=== PATIENT | male | born 1960 | race Caucasian/White ===

== ENCOUNTER 2021-11-24 11:23 | Emergency (ER) | payer OTHER, SELFPAY ==
[2021-11-24 11:24] VITALS: BP 169/85; PULSE 70; RESP 14; TEMP 36.4; O2SAT 98; BMI 39.1
--- NOTE | 2021-11-24 11:34 | NURSING ---
CALLED [facility], TO HAVE PATIENT TESTED
--- NOTE | 2021-11-24 12:05 | CT_ITS ---
STUDY: CT CHEST WITHOUT CONTRAST REASON FOR EXAM: Male, 61 years old. Chest injury due to trauma. RADIATION DOSAGE (If Supplied By Facility): CTDIvol = ( 20.04 ) mGy, DLP = ( 640.94 ) mGycm TECHNIQUE: Transaxial imaging was performed without the administration of intravenous contrast material. Multiplanar coronal and sagittal images were reformatted. Individualized dose optimization techniques were used for this CT. COMPARISON: No relevant priors. FINDINGS: CHEST There is a 6.3 mm pleural-based nodule in the lateral posterior aspect of the left lower lobe. A 12 month follow-up is recommended. There is no demonstrated pleural abnormality. There are calcifications of the coronary arteries. Mild degree of pericardial thickening along the right side of the heart. Normal mediastinum. Normal hilar regions. Normal unenhanced pulmonary arteries. Normal aorta arch and descending thoracic aorta. There are degenerative changes of the thoracic spine. Fatty infiltration of the liver. CT/Chest without Contrast IMPRESSION: 6.3 mm pleural-based nodule in the lateral posterior aspect of the left lower lobe. A 12 month follow-up examination is recommended. Mild degree of the right-sided pericardial thickening. Electronically Signed: Suhail Abbasi MD at 13:02 EDT ,
--- NOTE | 2021-11-24 12:06 | CT_ITS ---
STUDY: CT CERVICAL SPINE WITHOUT CONTRAST REASON FOR EXAM: Male, 61 years old. Neck injury. RADIATION DOSAGE (If Supplied By Facility): CTDIvol = ( 28.47 ) mGy, DLP = ( 575.10 ) mGycm TECHNIQUE: High resolution transaxial imaging was performed without contrast material. Sagittal and coronal images were reconstructed. Individualized dose optimization techniques were used for this CT. COMPARISON: None FINDINGS: Normal craniovertebral junction. Normal anterior atlantoaxial articulation. Normal odontoid process. There is straightening of the normal cervical lordosis. Normal vertebral bodies and posterior osseous elements. C2-3: Normal endplates. Normal disc height and morphology. Normal central canal and intervertebral neuroforamina. C3-4: Normal endplates. Normal disc height and morphology. Normal central canal and intervertebral neuroforamina. C4-5: Normal endplates. Normal disc height and morphology. Normal central canal and intervertebral neuroforamina. C5-6: Normal endplates. Normal disc height and morphology. Normal central canal and intervertebral neuroforamina. C6-7: Normal endplates. Normal disc height and morphology. Normal central canal and intervertebral neuroforamina. There is a 7.4 mm x 5 mm sclerotic focus along the anterior aspect of the left C7 pedicle. C7-T1: Normal endplates. Normal disc height and morphology. Normal central canal and intervertebral neuroforamina. Normal visualized soft tissue structures. CT/Spine Cervical without Contras IMPRESSION: No evidence of fracture or dislocation. There is a 7.4 mm x 5 mm sclerotic focus along the anterior aspect of the C7 vertebrae on the left side. Correlation with the bone scan is recommended. Electronically Signed: Suhail Abbasi MD at 12:54 EDT ,
--- NOTE | 2021-11-24 12:06 | CT_ITS ---
STUDY: CT BRAIN WITHOUT CONTRAST REASON FOR EXAM: Male, 61 years old. Head injury due to trauma. RADIATION DOSAGE (If Supplied By Facility): CTDIvol = ( 44.99 ) mGy, DLP = ( 846.73 ) mGycm TECHNIQUE: Transaxial CT imaging of the brain was performed without administration of intravenous contrast material. Individualized dose optimization techniques were used for this CT. COMPARISON: None FINDINGS: Normal soft tissue structures. Normal calvarium. Normal size ventricles and extra-axial spaces for the patient''s age. Normal white matter tracts of the cerebral hemispheres. Normal basal ganglia and thalami. Normal brainstem. Normal cerebellum. There is no intracranial hemorrhage. There are no findings of an acute ischemic infarction. Normal visualized paranasal sinuses. CT/Brain/Head without Contrast IMPRESSION: Normal unenhanced CT scan of the brain. Electronically Signed: Suhail Abbasi MD at 12:51 EDT ,
--- NOTE | 2021-11-24 12:15 | EKG12_ITS ---
Test Reason : CHEST PAIN/SYNCOPE Blood Pressure : / mmHG Vent. Rate : 062 BPM Atrial Rate : 062 BPM P-R Int : 172 ms QRS Dur : 074 ms QT Int : 374 ms P-R-T Axes : 040 000 015 degrees QTc Int : 379 ms Normal sinus rhythm Low voltage QRS Borderline ECG Confirmed by FLORA MYERS, SIERRA ([id number]), technical editor MARIA C BOSS ([id number]) on 11/25/2021 1:27:16 PM Referred By: Confirmed By:SHAD HINES MD
[2021-11-24 12:19] VITALS: BP 123/82; PULSE 68; RESP 19; O2SAT 98
[2021-11-24] MEDS: Morphine 4 MG/ML Syringe IV (12:23)
--- NOTE | 2021-11-24 12:25 | EDS_ITS ---
HPI History of Present Illness Chief Complaint: Head Injury Informant: patient Narrative Narrative: Patient is a 61-year-old male denies any significant past medical history presenting with head injury. 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 It fell straight down and hit his head. He states patient was knocked out for a couple minutes. He fell forward onto his chest. He is complaining of headache and chest pain near the sternum. He denies feeling short of breath. Denies any nausea. Denies any vision changes. States he just feels sleepy is having a hard time keeping his eyes open. Denies any associated neck pain. Was feeling well prior to this. Is not on any blood thinners. Did not take anything for his symptoms prior to arrival. No other complaints. This is a Workmen's Compensation visit. [facility] Allergy/AdvReac Type Severity Reaction Status Date / Time No Known Allergies Allergy Verified 11/24/21 11:27 Social History Smoking Status: Never smoker ROS ROS ED Constitutional Constitutional ED: Denies chills or fever(s) Eyes Eyes: Denies blurry vision or change in vision ENT ENT ED: Denies ear pain or rhinorrhea Cardiovascular Cardiovascular: Reports chest pain; Denies palpitations Respiratory/Chest Respiratory/Chest: Denies cough or dyspnea Gastrointestinal Gastrointestinal: Denies abdominal pain, nausea or vomiting Genitourinary Genitourinary ED: Denies dysuria Musculoskeletal Musculoskeletal: Denies arthralgias, myalgias or neck pain Integumentary Denies rash Neurologic Neurologic: Reports headache(s); Denies paresthesias or weakness Psychiatric Psychiatric: Denies anxiety Hematologic/Lymphatic Hematologic/Lymphatic: Denies easy bleeding or easy bruising EXAM Physical Exam Const Vital Signs: 11/24/21 11:24 11/24/21 11:29 11/24/21 12:19 Temperature 97.6 F L Temperature Source Temporal Pulse Rate 70 68 Respiratory Rate 14 19 H Respiratory Effort Normal Non-Labored Respiratory Depth Normal Respiratory Pattern Normal Blood Pressure 169/85 H 123/82 H Blood Pressure Mean 113 95 Pulse Ox 98 98 Oxygen Delivery Method Room Air Room Air Room Air 11/24/21 13:53 11/24/21 15:00 Temperature Temperature Source Pulse Rate 58 L 62 Respiratory Rate 13 16 Respiratory Effort Respiratory Depth Respiratory Pattern Blood Pressure 143/86 H 140/87 H Blood Pressure Mean 105 104 Pulse Ox 98 99 Oxygen Delivery Method Room Air Room Air Positive well nourished, well developed and obese General Appearance ED: well developed and NAD Nutritional Appearance: obese HEENT Reports TM's clear HEENT Narrative: Cephalhematoma on the top of the scalp, no associated abrasion. No palpable skull fracture. No signs of a basilar skull fracture on physical exam. tenderness Nose: Negative for septum abnormal Tympanic Membrane ED: Yes TM's clear Eyes PERRL and EOMs intact bilaterally Neck full ROM Neck Narrative: No midline tenderness General: Negative for tenderness Chest Wall inspection of chest normal Chest Narrative: No chest wall crepitus. 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 He has associated chest pain from presumably where he fell on his chest. Patient is presenting with leg concussion however CT of the head and C-spine obtained given mechanism of injury. I also obtain a CT of his chest as he fell on his chest and to rule out rib/sternal fracture/pulmonary contusion. Work-up is largely unremarkable. Patient's EKG does not show acute ischemic changes and is high since he troponin is 6 and 9. CBC and BMP largely unremarkable. Patient does have incidental findings of pleural nodule as well as sclerotic lesion to see 7 vertebrae. He is informed of these and the need for outpatient follow-up to rule out cancer. They verbalized agreement understand this plan. Patient is given work restrictions as well as concussion care/instructions. Is given a dose of morphine in the ER. Counseled alternate ibuprofen and Tylenol for pain at home. Lab Data Attestation: I reviewed the patient's lab results. Labs: Laboratory Results - last 24 hr 11/24/21 11/24/21 11/24/21 12:23 12:23 14:37 WBC 8.0 RBC 5.14 Hgb 15.1 Hct 43.2 MCV 84.0 MCH 29.4 MCHC 35.0 RDW Std Deviation 35.9 RDW Coeff of [place] 11.8 Plt Count 213 MPV 9.7 Immature Gran % (Auto) 1.400 H Neut % (Auto) 76.6 H Lymph % (Auto) 12.8 L [place] % (Auto) 7.0 Eos % (Auto) 1.4 Baso % (Auto) 0.8 Absolute Neuts (auto) 6.1 Absolute Lymphs (auto) 1.02 Nucleated RBC % 0 Sodium 140 Potassium 4.1 Chloride 111 H Carbon Dioxide 24.0 Anion Gap 5 BUN 17 Creatinine 1.03 Estim Creat Clear Calc 73.41 Est GFR (MDRD) Af Amer 94 Est GFR (MDRD) Non-Af 77 BUN/Creatinine Ratio 16.5 Glucose 109 H Calcium 8.8 Troponin I High Sens 6 9 Radiography Diagnostic Testing: Clinical Impression(s) from Imaging Studies Chest CT 11/24/21 12:05 IMPRESSION: 6.3 mm pleural-based nodule in the lateral posterior aspect of the left lower lobe. A 12 month follow-up examination is recommended. Mild degree of the right-sided pericardial thickening. Electronically Signed: Suhail Abbasi MD at 13:02 EDT , Brain CT 11/24/21 12:06 IMPRESSION: Normal unenhanced CT scan of the brain. Electronically Signed: Suhail Abbasi MD at 12:51 EDT , Cervical Spine CT 11/24/21 12:06 IMPRESSION: No evidence of fracture or dislocation. There is a 7.4 mm x 5 mm sclerotic focus along the anterior aspect of the C7 vertebrae on the left side. Correlation with the bone scan is recommended. Electronically Signed: Suhail Abbasi MD at 12:54 EDT , Rhythm Strip Rhythm Strip: Sinus Rhythm Rate: 62 Ectopy: None EKG Initial EKG: Attestation: I personally reviewed and interpreted this EKG as follows: Interpretation: Sinus Rhythm Comments: Normal sinus rhythm at a rate of 62 Normal axis Normal intervals Normal ST segments Low voltage QRS Discharge Plan Triage Chief Complaint: Head Injury ED Provider: Juana Hyde Dx/Rx/DC Orders Clinical Impression: Closed head injury with concussion, Acute chest wall pain Instructions: ED Chest Pain, Noncardiac, ED Concussion Primary Care Provider: Veronique Stubbs Referrals: [facility] [Group of Physicians] - 1-2 Days if not improving Veronique Stubbs DO [Primary Care Provider] - Activity Restrictions/Additional Instructions: Patient had ibuprofen and Tylenol at home. Your CT of your neck did show an area of sclerosis along the C7 vertebrae on the left. Please follow-up with your primary care doctor to discuss a bone scan to rule out any type of cancer. Disposition Disposition: Home, Self Care Discharge Date/Time: 11/24/21 15:49
[2021-11-24 12:36] LABS: Absolute Lymphocyte Count 1.02 X10^3/uL (0.83-4.51); Absolute Neutrophil Count 6.1 X10^3/uL (2.0-7.7); Basophil# 0.06 X10^3/uL; Basophil% 0.8 % (0-1); Eosinophil# 0.11 X10^3/uL; Eosinophils% 1.4 % (0-5); Hematocrit 43.2 % (40-54); Hemoglobin 15.1 g/dL (13.0-16.5); Lymphocyte # 1.02 X10^3/ul (0.83-4.51); Lymphocyte % 12.8 % (19-41); Mean Corpuscular Hgb 29.4 pg (27.0-32.0); Mean Platelet Vol. 9.7 fl (6.2-12.0); Monocyte# 0.56 X10^3/uL; NRBC Flagged by Analyzer 0 % (0-5); Neutrophil # 6.12 X10^3/uL (2.7-7.7); Neutrophil % 76.6 % (47-70); Platelet Count 213 K/mm3 (150-450); RBC Distribution Width CV 11.8 % (11.6-14.6); RBC Distribution Width SD 35.9 fl (35.1-43.9); Red Blood Count 5.14 M/mm3 (4.6-6.2)
[2021-11-24 12:54] LABS: Anion Gap 5 (5-15); BUN 17 mg/dL (7-18); BUN/Creat Ratio 16.5 RATIO (10-20); Calcium,Total 8.8 mg/dL (8.5-10.1); Chloride 111 mmol/L (98-107); Creatinine, Serum 1.03 mg/dL (0.70-1.30); EST Glomerular Filtration Rate 77 mL/min (>60); Est Glom Filt Rate - Afr Amer 94 mL/min (>60); Estimated Creatinine Clearance 73.41 ml/min; Glucose 109 mg/dL (74-106); Potassium 4.1 mmol/L (3.5-5.1); Sodium Level 140 mmol/L (136-145); Troponin-I HS (w/2H Reflex) 6 pg/mL (3.0-78.0)
[2021-11-24 13:53] VITALS: BP 143/86; PULSE 58; RESP 13; O2SAT 98
[2021-11-24 14:30] LABS: Reflex Troponin-HS? (from REC) Y
[2021-11-24 15:00] VITALS: BP 140/87; PULSE 62; RESP 16; O2SAT 99
[2021-11-24 15:00] LABS: Troponin-I HS 9 pg/mL (3.0-78.0)
== END 2021-11-24 15:49 | disposition home or self-care (01) ==
PROVIDERS: Emergency Provider Emergency Medicine; PCP Family Medicine; Visit Provider Emergency Medicine
DX: S06.0X0A Concussion without loss of consciousness, initial encounter (principal); Y99.0 Civilian activity done for income or pay; R07.89 Other chest pain; R91.1 Solitary pulmonary nodule; W20.8XXA Other cause of strike by thrown, projected or falling object, initial encounter
CPT/HCPCS: 70450; 71250; 72125; 80048; 84484; 85025; 93005; 99285; A4216